=== PATIENT | male | born 1970 | race Caucasian/White ===

== ENCOUNTER 2024-05-13 09:05 | Outpatient (CLI) | payer OTHER, SELFPAY ==
--- NOTE | ~2024-05-13 | XR_ITS ---
EXAMINATION: XR thoracic spine 3V DATE: 05/13/2024 09:32 INDICATION: Dorsalgia, unspecified. TECHNIQUE: 3 views of thoracic spine were obtained. COMPARISON: None. FINDINGS: There is 4 degrees dextrocurvature of thoracic spine. Vertebral body heights and interverte bral disc heights are normal. There are endplate osteophytes at most levels. IMPRESSION: 1. Mild thoracic spondylosis. Reviewed, dictated and finalized at location A.
--- NOTE | ~2024-05-13 | XR_ITS ---
EXAMINATION: XR lumbar spine 2-3V DATE: 05/13/2024 09:32 INDICATION: Dorsalgia, unspecified. TECHNIQUE: 3 views of lumbar spine were obtained. COMPARISON: None. FINDINGS: There is 8 degrees levocurvature of lumbar spine. Vertebral body heights are normal. There is mildly decreased disc height at L3-L4 and severely decreased disc height at L4-L5 and L5-S1. There is multilevel facet joint osteoarthritis, severe in lower lumbar spine. IMPRESSION: 1. Severe lumbar spondylosis. Reviewed, dictated and finalized at location A.
== END 2024-05-13 09:06 | disposition home or self-care (01) ==
PROVIDERS: PCP Family Medicine; Visit Provider Nurse Practitioner Family
DX: M43.04 Spondylolysis, thoracic region (principal); M43.06 Spondylolysis, lumbar region
CPT/HCPCS: 72072; 72100

== ENCOUNTER 2024-05-24 12:26 | Outpatient (CLI) | payer OTHER, SELFPAY ==
--- NOTE | ~2024-05-24 | MR_ITS ---
EXAMINATION: MR lumbar spine wo con DATE: 05/24/2024 13:07 INDICATION: Spondylosis without myelopathy or radiculopathy. TECHNIQUE: Magnetic resonance imaging (MRI) of the lumbar spine was performed without intravenous con trast. Sequences included sagittal T2-weighted FSE, sagittal T2-weighted FS FSE, sagittal T1-weighted FSE, and axial T2-weighted FSE. COMPARISON: Lumbar spine radiographs 05/13/2024 FINDINGS: There is 12 degrees dextroscoliosis of thoracic lumbar spine. There is mild chronic anterio r wedging of T11 vertebral body. There is mildly decreased disc height at L1-L2 and L2-L3, moderately decreased disc height at L3-L4, and severely decreased disc height at L4-L5 and L5-S1. The distal sp inal cord signal intensity is normal. The conus medullaris is at L2. The following disc levels are sp ecifically discussed: L1-L2: The disc is bulging. There is moderate bilateral facet joint osteoarthritis. There is mild lef t neural foraminal stenosis. There is mild central canal stenosis. L2-L3: The disc is bulging with superimposed left subarticular zone extrusion with 1.6 cm superior ex tension. There is moderate bilateral facet joint osteoarthritis. There is mild bilateral neural amanda inal stenosis. There is mild central canal stenosis. There is moderate stenosis of left lateral reces s at the L2 infrapedicular level. L3-L4: The disc is bulging and has an annular fissure. There is severe right and moderate left facet joint osteoarthritis. There is mild bilateral neural foraminal stenosis. There is mild central canal stenosis. L4-L5: The disc is bulging and has an annular fissure. There is severe right and moderate left facet joint osteoarthritis. There is mild right and moderate left neural foraminal stenosis. There is mild central canal stenosis. L5-S1: The disc is bulging. There is moderate right and severe left facet joint osteoarthritis. There is moderate bilateral neural foraminal stenosis. There is mild central canal stenosis. IMPRESSION: 1. Severe lumbar spondylosis. Reviewed, dictated and finalized at location A.
== END 2024-05-24 12:27 | disposition home or self-care (01) ==
PROVIDERS: PCP Family Medicine; Visit Provider Nurse Practitioner Family
DX: M51.16 Intervertebral disc disorders with radiculopathy, lumbar region (principal); M43.06 Spondylolysis, lumbar region
CPT/HCPCS: 72148

== ENCOUNTER 2024-08-14 08:00 | Outpatient (RCR) | payer OTHER, SELFPAY ==
--- NOTE | 2024-05-29 14:34 | OPREHPOC ---
Outpatient Therapy Plan of Care This is a Multidisciplinary Plan of Care that may contain components documented by all disciplines (PT, OT, and ST.) PT Problem 1 PT Problem #1 Knowledge Deficit PT Goal 1 Goal [place] with HEP PT Problem 2 PT Problem #2 Pain PT Goal 1 Goal Patient will report 50% improvement in quantity and quality of sleep Target Visit 8 PT Goal 2 Goal Demonstrate negative hamstring tension test bilaterally and negative slump test indicative of reduced spinal nerve tension from disc extrusion PT Problem 3 PT Problem #3 Impaired Strength PT Goal 1 Goal Improve pita hip abduction strength to 4+/5 to improve lateral pelvic and lumbar stabilization Target Visit 8 PT Problem 4 PT Problem #4 Impaired Functional Mobil PT Goal 1 Goal Patient will demonstrate ability to perform 20# squat lift pain free with proper hip hinge to reduce injury with ADLs Target Visit 8
--- NOTE | 2024-05-29 14:34 | PTOPEVAL1 ---
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 He is unsure of a date or time that he would have injured himself. The only things that he can remember is an isolated incident of pulling a trailer out of the mud. Reports that he had not had a whole lot of pain prior to that. Pain is mostly in the left low back. He has pain and numbness in left groin and left buttock. Pain is made worse with sitting and he is relieved through sitting. Only able to sleep about 4 hours a night if he is kay at this point. Reports that occasional left leg weakness. Reported Pain Level Pain Score 5: Self Report Assessment PT Clinical Summary Patient presents with classic signs and radiographic evidence of disc herniations at levels L2-L3. Majority of symptoms are into left groin and left leg. Patient has notable anterior pressure in postural analysis and will benefit form skilled therapy to work into prone progression. Has notable lumbar kyphosis and poor pita hip mobility. Plan of Care Interventions Electrical Stimulation,Gait Training,Manual Therapy,Neuro Re-education,Therapeutic Activities, Therapeutic Exercise PT Services Indicated Yes Treatment Frequency and 2x/week for 8 visits Duration These treatments will address the objective and functional deficits as defined above. The patient will be advanced safely and appropriately in order for the patient to progress towards his/her prior level of function. Additional exercises will be introduced and as well as a comprehensive home exercise program upon discharge, if needed, ?to ensure carryover of functional gains achieved in the clinic. This treatment plan has been reviewed and agreement upon by the patient.
--- NOTE | 2024-06-19 13:26 | PCPTNOTE ---
Patient cancelled today's appointment due to car trouble.
--- NOTE | 2024-06-30 14:32 | OPREHPOC ---
Outpatient Therapy Plan of Care This is a Multidisciplinary Plan of Care that may contain components documented by all disciplines (PT, OT, and ST.) PT Problem 1 PT Problem #1 Knowledge Deficit PT Goal 1 Goal [place] with HEP Progress Met Comment 06-30-24 progress goal met continue towards goals PT Goal 2 Target Visit 15 PT Problem 2 PT Problem #2 Pain PT Goal 1 Goal Patient will report 50% improvement in quantity and quality of sleep Target Visit 8 Progress Not Met Comment 06-30-24 progress goal not met NEW GOAL: pt report sleeping tolerance of 4 hours at time PT Goal 2 Goal Demonstrate negative hamstring tension test bilaterally and negative slump test indicative of reduced spinal nerve tension from disc extrusion Target Visit 15 Progress Not Met Comment 06-30-24 progress goal not met continue towards goal target visit 15 PT Problem 3 PT Problem #3 Impaired Strength PT Goal 1 Goal 1* Improve pita hip abduction strength to 4+/5 to improve lateral pelvic and lumbar stabilization Target Visit 8 Progress Not Met Comment 06-30-24 progress goal not met add goals: 2* 2 minute walkint test distance of 450' PT Goal 2 Target Visit 15 PT Problem 4 PT Problem #4 Impaired Functional Mobil PT Goal 1 Goal Patient will demonstrate ability to perform 20# squat lift pain free with proper hip hinge to reduce injury with ADLs Target Vi
--- NOTE | 2024-06-30 14:32 | PTOPPROG ---
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 Compared to the initial evaluation: pain rating same at low end of /10 and high rating improved 9 to 6/10; self assessment Oswestry rating from 64% to 54% limitation in activity level; continues to have intermittent pain into L thigh and groin areas; sleeping tolerance of 2 hours at a time; weakness over trunk, hip extension and hip abduction muscle groups; tightness in both hamstrings with pain increase with both; maximum lifting test with bilateral UE box lift floor/ waist height of 20#- stopped due to pulling in his back; Education for HEP and posture, body mechanics. The goals were partially met. Continue PT to continue to progress strength and decrease pain. Discussed for him to follow up with care provider, since he has a return to work order for next week. Plan of Care Interventions Electrical Stimulation,Hot Pack/Cold Pack,Manual Therapy,Neuro Re-education,Patient
--- NOTE | 2024-08-11 08:05 | PCPTNOTE ---
Called and canceled , not feeling well. AKS
--- NOTE | 2024-08-14 08:46 | PTOPDC ---
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 Compared to the last reassessment he has improved in all areas: pain rating now 0-2/10; self assessment Oswestry rating of 0% limitation in activity level; sleeping returned to normal at ~ 6 hours at time; increase strength of trunk and hips, with lifting bilateral UE box from floor/ waist height of 70# with good body mechanics and no pain; education completed for HEP, body mechanics, pain management. The goals were achieved. Discharge PT. He is to continue with his HEP and back care. Plan of Care PT Services Indicated No
== END 2024-08-14 13:00 | disposition home or self-care (01) ==
LOC: ANHPT 08:00
PROVIDERS: PCP Family Medicine; Visit Provider Nurse Practitioner Family
DX: M47.816 Spondylosis without myelopathy or radiculopathy, lumbar region (principal); M51.16 Intervertebral disc disorders with radiculopathy, lumbar region
CPT/HCPCS: 97014; 97110; 97140; 97161; 97530; G0283